=== PATIENT | male | born 1990 | race Caucasian/White ===

== ENCOUNTER 2024-02-19 14:06 | Outpatient (REF) | payer MEDICAID, SELFPAY ==
--- NOTE | 2024-02-19 14:21 | EMG_ITS ---
Chief complaint: 5 weeks of bilateral numbness 3rd 5th digits. Previous history of right 5th digit boxers fracture, status post internal fixation, right. Reason for referral: Evaluate for ulnar neuropathy Referred by: Dr. Gurjit Freeman Procedure done: Bilateral upper extremities NCS/EMG Precautions and/or limitations: None The limb temperature was monitored continuously and remained between 32-36 degrees C during the performance of the NCS. Ulnar motor NCS was performed with moderate elbow flexion between 70-90 degrees, with across-elbow distance of 10 cm. Nerve Conduction Studies Anti Sensory Summary Table ?Stim Site NR Onset (ms) Norm Onset (ms) Peak (ms) Norm Peak (ms) O-P Amp (?V) Norm O-P Amp Site1 Site2 Delta-0 (ms) Dist (cm) Eloy (m/s) Norm Eloy (m/s) Left Median Anti Sensory (2nd Digit) Wrist ? 2.5 3.2 <3.6 37.1 >10 Wrist 2nd Digit 2.5 14.0 56 Right Median Anti Sensory (2nd Digit) Wrist ? 2.4 3.1 <3.6 33.9 >10 Wrist 2nd Digit 2.4 14.0 58 Right Radial Anti Sensory (Thumb) Forearm ? 1.4 2.1 <3.1 27.3 Forearm Thumb 1.4 0.0 Left Ulnar Anti Sensory (5th Digit) Wrist ? 2.1 2.8 <3.7 31.8 >15.0 Wrist 5th Digit 2.1 14.0 67 Right Ulnar Anti Sensory (5th Digit) Wrist ? 2.3 2.9 <3.7 21.2 >15.0 Wrist 5th Digit 2.3 14.0 61 Motor Summary Table ?Stim Site NR Onset (ms) Norm Onset (ms) O-P Amp (mV) Norm O-P Amp iAmp (mV) Amp (1st) (%) Site1 Site2 Delta-0 (ms) Dist (cm) Eloy (m/s) Norm Eloy (m/s) Left Median Motor (Abd Poll Brev) Wrist ? 3.3 <3.9 8.4 >4.5 10.2 100.0 Elbow Wrist 3.9 21.5 55 >45 Elbow ? 7.2 8.2 9.6 97.6 Right Median Motor (Abd Poll Brev) Wrist ? 3.0 <3.9 12.8 >4.5 14.5 100.0 Elbow Wrist 4.1 22.0 54 >45 Elbow ? 7.1 11.2 12.7 87.5 Left Ulnar Motor (Abd Dig Minimi) Wrist ? 2.4 <3.0 9.0 >5 11.0 100.0 B Elbow Wrist 3.6 22.0 61 >45 B Elbow ? 6.0 8.7 10.7 96.7 A Elbow B Elbow 1.6 10.0 63 >45 A Elbow ? 7.6 6.6 8.2 73.3 Right Ulnar Motor (Abd Dig Minimi) Wrist ? 2.6 <3.0 10.1 >5 12.4 100.0 B Elbow Wrist 4.4 21.0 48 >45 B Elbow ? 7.0 5.1 6.6 50.5 A Elbow B Elbow 1.2 10.0 83 >45 A Elbow ? 8.2 5.0 6.5 49.5 EMG ?Side Muscle Nerve Root Ins Act Fibs Psw Amp Dur Poly Recrt Int Pat Comment Right 1stDorInt Ulnar C8-T1 Nml Nml Nml Nml Nml 0 Nml Complete Right Biceps Musculocut C5-6 Nml Nml Nml Nml Nml 0 Nml Complete Right Triceps Radial C6-7-8 Nml Nml Nml Nml Nml 0 Nml Complete Right Deltoid Axillary C5-6 Nml Nml Nml Nml Nml 0 Nml Complete Right FlexCarpiUln Ulnar C8,T1 Nml Nml Nml Nml Nml 0 Nml Complete Left 1stDorInt Ulnar C8-T1 Nml Nml Nml Nml Nml 0 Nml Complete Left Biceps Musculocut C5-6 Nml Nml Nml Nml Nml 0 Nml Complete Left Triceps Radial C6-7-8 Nml Nml Nml Nml Nml 0 Nml Complete Left Deltoid Axillary C5-6 Nml Nml Nml Nml Nml 0 Nml Complete Left FlexCarpiUln Ulnar C8,T1 Nml Nml Nml Nml Nml 0 Nml Complete FINDINGS: Right ulnar motor nerve showed normal distal latency, drop in amplitude below elbow and normal conduction velocity. This signifies either Domingo Carl anastomosis which is a normal anatomic variant or this is from previous surgery. No conduction block across the elbow. All other nerves tested were within normal. Concentric needle EMG was performed in selected muscles of the bilateral upper extremities. Study did not reveal signs of electric abnormalities as shown in the table above. Insert normal NCS upper extremity CLINICAL COMMENT: Right ulnar motor nerve showed normal distal latency, drop in amplitude below elbow and normal conduction velocity. This suggests either a Domingo Carl anastomosis which is a normal anatomic variant or this is from previous surgery. No conduction block across the elbow. If symptoms continue, may consider repeat NCS in 3 months. Thank you for your kind referral. Clari Castro MD, CRISTIANO Board Certified, [place] [employer] (ABPMR) Board Certified, [place] [employer] (ABEM) CODIN [phone] x 2 MTDD
== END 2024-02-19 14:07 | disposition home or self-care (01) ==
LOC: HO.NEURO 14:06
PROVIDERS: PCP Internal Medicine; Visit Provider Internal Medicine
DX: R20.2 Paresthesia of skin (principal)
CPT/HCPCS: 95886; 95911

== ENCOUNTER → 2024-02-19 14:21 | Outpatient (BNV) | payer MEDICAID, SELFPAY | PROVIDERS: PCP Internal Medicine; Visit Provider Physical Medicine & Rehabilitation | DX: R20.0 Anesthesia of skin (principal) | CPT/HCPCS: 95886; 95911 ==